=== PATIENT | female | born 1930 | race Caucasian/White ===

== ENCOUNTER 2016-10-02 11:36 | Emergency (ER) | payer OTHER ==
[~2016-10-02] VITALS: Ht 165.1 cm; Wt 88.5 kg
[~2016-10-02 11:36] MED LIST: FAMO40TA7 PO; HYDR-4039 PO; LEVO88TA2 PO; MEMA10TA12 PO; METO50TA7 PO
[2016-10-02 12:00] VITALS: BP_SYST 93
[2016-10-02] MEDS ORDERED: COCAINE 4% SOLUTION TP ONE (13:15)
[2016-10-02 14:18] LABS: BASOPHILS # (AUTO) 0.1 K/uL (0.0-0.2); BASOPHILS % (AUTO) 1.1 % (0.0-2.0); EOSINOPHILS % (AUTO) 0.4 % (0.0-4.0); HEMATOCRIT 36.4 % (36-48); HEMOGLOBIN 12.3 g/dL (12.0-16.0); LYMPHOCYTES # (AUTO) 1.1 K/uL (1.0-5.5); LYMPHOCYTES % (AUTO) 10.8 % (20.5-51.5); MEAN CORPUSCULAR HEMOGLOBIN 30 pg (27-31); MEAN CORPUSCULAR HGB CONC 34 % (32-36); MEAN CORPUSCULAR VOLUME 89 fL (79.0-98.0); MONOCYTES # (AUTO) 0.3 K/uL (0.0-1.0); MONOCYTES % (AUTO) 3.2 % (1.7-9.3); NEUTROPHILS # (AUTO) 8.9 K/uL (1.8-7.7); NEUTROPHILS % (AUTO) 84.5 % (40.0-70.0); RED CELL DISTRIBUTION WIDTH 13.4 % (9.0-15.0); WHITE BLOOD COUNT (AUTO) 10.4 K/uL (4.8-10.8)
[2016-10-02 14:21] LABS: ANION GAP 6 (5-15); CALCIUM 8.8 mg/dL (8.4-11.0); CHLORIDE 104 mmol/L (98-107); CREATININE 0.91 mg/dL (0.55-1.30); GLUCOSE 151 mg/dL (70-99); SODIUM SERUM 138 mmol/L (136-145); UREA NITROGEN, BLOOD 33 mg/dL (8-21)
[2016-10-02 14:26] LABS: ALANINE AMINOTRANSFERASE 16 U/L (12-78); ALBUMIN 3.3 g/dL (3.4-4.8); ASPARTATE AMINOTRANSFERASE 14 U/L (10-37); PLATELET COUNT (AUTO) 193 K/uL (130-430); TOTAL BILIRUBIN 0.3 mg/dL (0.0-1.0); TOTAL PROTEIN, SERUM 7.3 g/dL (6.4-8.3)
[2016-10-02 15:00] VITALS: BP_SYST 138
== END 2016-10-02 15:00 | disposition home or self-care (01) ==
LOC: SED 11:36
DX: R04.0 Epistaxis (principal); E11.9 Type 2 diabetes mellitus without complications; I10 Essential (primary) hypertension; Z79.899 Other long term (current) drug therapy
CPT/HCPCS: 36415; 80053; 85025; 85610-TC; 85730-TC; 99284